=== PATIENT | female | born 1960 | race Caucasian/White ===

== ENCOUNTER 2021-08-08 10:15 | Day surgery (SDC) | payer BC ==
[2021-08-07 09:41] VITALS: BMI 22.2
[~2021-08-08 10:15] MED LIST: LACTATED RINGERS 1,000 ML IV SCH; LIDOCAINE 1% (10MG/ML) FOR IV START INTRADERMA PRN
[2021-08-08 10:45] VITALS: TEMP 97.4
[2021-08-08] MEDS ORDERED: PROPOFOL 10 MG/ML 20 ML VIAL IV ONE (11:30)
[2021-08-08] MEDS ORDERED: LIDOCAINE 1% INJ 10MG/ML (20 ML MDV) ONE (11:30)
--- NOTE | 2021-08-08 11:46 | P.PCN ---
Date of Procedure: 08/08/21 Procedure(s) Performed: BRIEF HISTORY: Patient is a 60-year-old, pleasant, white female scheduled for an upper endoscopy as a part of evaluation of epigastric pain for the last 1 year duration.. Denies any prior history of peptic ulcer disease or recent NSAID use. PROCEDURE PERFORMED: Esophagogastroduodenoscopy biopsy. PREOPERATIVE DIAGNOSIS: Chronic epigastric pain of 1 year duration. IV sedation per anesthesia. PROCEDURE: After informed consent was obtained, the patient was brought into the endoscopy unit. IV sedation was administered by Anesthesia under continuous monitoring. Initially the Olympus GIF-140 video endoscope was inserted into the mouth. Esophagus intubated without any difficulty. It was gradually advanced into the stomach and duodenum and carefully examined. The bulb and the second part of the duodenum appeared normal. The scope at this time was withdrawn to the stomach, adequately insufflated with air, and upon careful examination, mucosa of the antrum and diffuse gastritis and biopsies were done from this area. The, body, cardia and the fundus appeared normal. The scope was then withdrawn into the esophagus. The GE junction was located at 39 cm from the incisors. There were 2 linear erosions in the distal esophagus consistent with LA grade B reflux esophagitis. Rest of the esophagus appeared normal and the patient tolerated the procedure well. IMPRESSION: 1. Antral erosive gastritis. 2. Linear erosions in the distal esophagus consistent with LA grade B reflux esophagitis. RECOMMENDATIONS: The findings of this examination were discussed with the patient as well as her family. She was advised to follow with the biopsy results. She'll be started on Protonix 40 mg daily and she was advised to follow antireflux measures..
[2021-08-08 12:00] VITALS: BP 111/73; PULSE 60; RESP 16
== END 2021-08-08 12:44 | disposition home or self-care (01) ==
LOC: ORWHC2ENDO 10:15
PROVIDERS: ATTEND Internal Medicine Gastroenterology
DX: K29.60 Other gastritis without bleeding (principal); G89.29 Other chronic pain; K21.00 Gastro-esophageal reflux disease with esophagitis, without bleeding; K29.50 Unspecified chronic gastritis without bleeding
CPT/HCPCS: 43239; 88305; J2001; J2704